=== PATIENT | female | born 1965 | race Hispanic/Latino ===

== ENCOUNTER 2017-11-10 18:08 | Emergency (ER) | payer OTHER ==
[~2017-11-10] VITALS: Ht 160 cm; Wt 79.4 kg
[2017-11-10] MEDS ORDERED: LOPRESSOR25 MG PO (18:43)
[2017-11-10] MEDS ORDERED: ATORVASTATIN CA10 MG PO (18:43)
[2017-11-10 19:11] VITALS: BP 172/78
[2017-11-10] MEDS ORDERED: ACETAMINOPHEN 325 MG TAB PO ONE (19:15)
== END 2017-11-10 19:13 | disposition home or self-care (01) ==
LOC: FSED 18:08
DX: S16.1XXA Strain of muscle, fascia and tendon at neck level, initial encounter (principal); S39.012A Strain of muscle, fascia and tendon of lower back, initial encounter; V43.52XA Car driver injured in collision with other type car in traffic accident, initial encounter; Y92.488 Other paved roadways as the place of occurrence of the external cause; I10 Essential (primary) hypertension
CPT/HCPCS: 99282

== ENCOUNTER 2025-01-20 12:06 | Inpatient (IN) | payer BC ==
[~2025-01-20] VITALS: Ht 160 cm; Wt 79.4 kg
[~2025-01-20 12:06] MED LIST: ATORVASTATIN CA10 MG PO; LOPRESSOR25 MG PO
[2025-01-20 12:14] VITALS: TEMP 97.8
[2025-01-20] MEDS ORDERED: SODIUM CHLORIDE 0.9% 1000ML 1,000 ML IV SCH (12:30)
[2025-01-20 12:46] LABS: BASOPHILS % 0.3 % (0.0-1.0); EOSINOPHILS % 0.8 % (0.0-6.0); LYMPHOCYTES % 17.1 % (18.0-39.1); MONOCYTES % 6.5 % (4.4-11.3); NEUTROPHILS % 74.8 % (38.7-80.0); RED CELL DISTRIBUTION WIDTH 13.7 % (11.7-14.4)
[2025-01-20 13:01] LABS: EST GLOMERULAR FILTRATION RATE 50 ML/MIN (>=60)
[2025-01-20 14:15] VITALS: PULSE 90; RESP 20
[2025-01-20 15:00] VITALS: BP 119/63; PULSE 90; RESP 18; TEMP 97.8; O2SAT 95
[2025-01-20] MEDS: ASPIRIN 81 MG CHEW TAB PO ONE (15:53)
[2025-01-20 16:14] VITALS: BP 138/67; PULSE 88; RESP 20; TEMP 97.6; O2SAT 95
[2025-01-20 20:00] VITALS: BP 155/82; PULSE 106; RESP 22; TEMP 98.2; O2SAT 99
[2025-01-20] MEDS ORDERED: ONDANSETRON HCL INJ 2MG/ML 2ML 2 MG/ML VIAL IV PRN (21:45)
[2025-01-20] MEDS ORDERED: POLYETHYLENE GLYCOL 3350 17 GM PACK PO PRN (21:45)
[2025-01-20 22:17] VITALS: BP 155/82; PULSE 88; RESP 20; TEMP 97.6; O2SAT 95
[2025-01-20] MEDS: HYDRALAZINE HCL 20 MG/ML VIAL IV PRN (22:17)
[2025-01-20] MEDS: ACETAMINOPHEN 325 MG TAB PO PRN (22:35)
[2025-01-21] VITALS (10 sets, daily range): BP systolic 131–147; BP diastolic 69–77; PULSE 68–95; RESP 16–20; TEMP 97.6–98.4; O2SAT 93–100
[2025-01-21] MEDS ORDERED: BENICAR20 MG PO (06:05)
[2025-01-21] MEDS ORDERED: HYDRALAZINE HC100 MG PO (06:05)
[2025-01-21] MEDS ORDERED: METOPROLOL TAR100 MG PO (06:05)
[2025-01-21] MEDS ORDERED: SPIRONOLACTONE25 MG PO (06:05)
[2025-01-21] MEDS ORDERED: TERAZOSIN HCL5 MG PO (06:05)
[2025-01-21 06:32] LABS: BASOPHILS % 0.8 % (0.0-1.0); EOSINOPHILS % 1.2 % (0.0-6.0); LYMPHOCYTES % 21.5 % (18.0-39.1); MONOCYTES % 7.8 % (4.4-11.3); NEUTROPHILS % 68.2 % (38.7-80.0); RED CELL DISTRIBUTION WIDTH 14.3 % (11.7-14.4)
[2025-01-21 06:49] LABS: EST GLOMERULAR FILTRATION RATE 89.0 ML/MIN (>=60)
[2025-01-21] MEDS: DOCUSATE SODIUM 100 MG CAP PO SCH (09:20)
[2025-01-21] MEDS: METOPROLOL TARTRATE 50 MG TAB PO SCH (16:37)
[2025-01-22] VITALS (8 sets, daily range): BP systolic 128–159; BP diastolic 65–88; PULSE 69–101; RESP 16–20; TEMP 97.6–98.4; O2SAT 93–99
[2025-01-22] MEDS ORDERED: HYDRALAZINE HCL50 MG PO (15:23)
[2025-01-22] MEDS ORDERED: TOPROL XL50 MG PO (15:23)
[2025-01-22] MEDS ORDERED: ATORVASTATIN 10 MG TAB PO SCH (21:00)
[2025-01-23] MEDS ORDERED: METOPROLOL SUCCINATE 50 MG TAB XL PO SCH (09:00)
== END 2025-01-22 16:10 | disposition home or self-care (01) | DRG 312 ==
LOC: ER 12:10 → ERHOLD 13:57 → MED/SURG3 15:00 → OBSVTOIN 01-22 00:20
PROVIDERS: ADMIT Internal Medicine; ATTEND Internal Medicine
DX: I95.2 Hypotension due to drugs (principal); I10 Essential (primary) hypertension; R55 Syncope and collapse; T46.5X5A Adverse effect of other antihypertensive drugs, initial encounter; R07.89 Other chest pain; Z88.8 Allergy status to other drugs, medicaments and biological substances
CPT/HCPCS: 36415; 70450; 71045; 80048; 80053; 82550; 83690; 83880; 84484; 85025; 93005; 93306; 94799; 99284; G0378; J0360